=== PATIENT | male | born 1930 | race Caucasian/White ===

== ENCOUNTER 2017-02-26 06:31 | Observation (INO) | payer MEDICARE, OTHER ==
[2017-02-25 13:31] LABS: BASOPHILS % 0.3 % (0.0-1.0); EOSINOPHILS # (AUTO) 0.1 (0.0-0.4); EOSINOPHILS % 1.7 % (0.0-6.0); HEMATOCRIT 35.1 % (38.2-49.6); HEMOGLOBIN 11.4 g/dL (14.0-18.0); LYMPHOCYTES # (AUTO) 1.7 (1.0-3.2); LYMPHOCYTES % 22.3 % (18.0-39.1); MEAN CORPUSCULAR HEMOGLOBIN 30.2 pg (28-32); MEAN CORPUSCULAR HGB CONC 32.5 g/dL (31-35); MEAN CORPUSCULAR VOLUME 93.1 fL (81-99); MONOCYTES # (AUTO) 0.4 (0.2-0.8); MONOCYTES % 5.8 % (4.4-11.3); NEUTROPHILS # (AUTO) 5.3 (2.1-6.9); NEUTROPHILS % 69.8 % (38.7-80.0); PLATELET COUNT 143 x10e3/uL (140-360); RED BLOOD COUNT 3.77 x10e6/uL (4.3-5.7); RED CELL DISTRIBUTION WIDTH 14.3 % (11.7-14.4)
[2017-02-25 13:55] LABS: INR 1.06; PARTIAL THROMBOPLASTIN TIME 33.2 seconds (23.8-35.5); PROTHROMBIN TIME 14.3 seconds (11.9-14.5)
--- NOTE | 2017-02-25 13:55 | Diagnostic Imaging Report ---
PROCEDURE: Frontal and lateral views of the chest. COMPARISON: Portable chest 11/12/2015. INDICATIONS: PRE OPERATIVE CHEST X-RAY FOR BACK SURGERY FINDINGS: Lines/tubes: None. Lungs: The lungs are well inflated and clear. There is no evidence of pneumonia or pulmonary edema. Pleura: There is no pleural effusion or pneumothorax. Heart and mediastinum: The heart and the mediastinum are normal. Atherosclerotic calcifications. Bones: No acute bony abnormality. Degenerative changes of the thoracic spine. IMPRESSION: No acute radiographic abnormality. Dictated by: Benoit Barillas M.D. on 02/25/2017 at 14:02 Electronically approved by: Benoit Barillas M.D. on 02/25/2017 at 14:02
[2017-02-25 14:03] LABS: ANION GAP 12.1 mmol/L (8-16); BLOOD UREA NITROGEN 26 mg/dL (7-26); BUN/CREATININE RATIO 24 (6-25); CALCIUM 9.6 mg/dL (8.4-10.2); CARBON DIOXIDE 24 mmol/L (22-29); CHLORIDE 108 mmol/L (98-107); CREATININE, SERUM 1.07 mg/dL (0.72-1.25); EST GLOMERULAR FILTRATION RATE > 60 ML/MIN (60-); GLUCOSE 93 mg/dL (74-118); POTASSIUM 4.1 mmol/L (3.5-5.1); SODIUM 140 mmol/L (136-145)
[~2017-02-26] VITALS: Ht 180.3 cm; Wt 89.8 kg
[2017-02-26] VITALS (7 sets, daily range): BP systolic 124–165; BP diastolic 63–85
[~2017-02-26 06:31] MED LIST: ALEVE220 M1 PO; ALLOPURINOL300 MG PO; AMLODIPINE BESYL5 MG PO; AVODART0.5 MG PO; ELIQUIS; ELIQUIS PO; OCUVITE LUTEIN1 EACH PO; OMEPRAZOLE40 MG PO; PREDNISONE10 MG PO; VASOTEC10 M1 PO
[2017-02-26] MEDS ORDERED: GELATIN SPONGE SZ 100 ONE (06:50)
[2017-02-26] MEDS ORDERED: THROMBIN FOR SOLN 5,000 UNIT VIAL ONE (06:50)
[2017-02-26] MEDS ORDERED: BUPIVACAINE 0.5%/EPI 30 ML SDV INJ ONE (06:50)
[2017-02-26] MEDS ORDERED: BACITRACIN 50,000 UNIT VIAL ONE (06:50)
[2017-02-26] MEDS ORDERED: CEFAZOLIN SOD 1 GM/NS 50ML 50 ML IV ONE (07:03)
[2017-02-26] MEDS ORDERED: ACETAMINOPHEN 1000 MG/100 ML 100 ML IV ONE (07:20)
[2017-02-26] MEDS ORDERED: LIDOCAINE HCL (LTA) 4 ML SOLN ONE (07:21)
[2017-02-26] MEDS ORDERED: PROMETHAZINE HCL (IM) 25 MG/ML VIAL IM PRN (10:00)
[2017-02-26] MEDS ORDERED: MAGNESIUM/ALUMINUM/SIMETHICONE 30 ML UDC PO PRN (10:00)
[2017-02-26] MEDS ORDERED: ONDANSETRON HCL INJ 2 MG/ML VIAL IV PRN (10:00)
[2017-02-26] MEDS ORDERED: MORPHINE SULFATE 5 MG/ML VIAL IM PRN (10:00)
[2017-02-26] MEDS ORDERED: HYDROMORPHONE 2MG/ML INJ IV PRN (10:00)
[2017-02-26] MEDS ORDERED: CARISOPRODOL 350 MG TAB PO PRN (10:00)
[2017-02-26] MEDS: ENALAPRIL MALEATE 10 MG TAB PO SCH (10:50)
[2017-02-26] MEDS: AMLODIPINE BESYLATE 5 MG TAB PO SCH (10:50)
[2017-02-26] MEDS: LACTATED RINGER'S 1,000 ML IV SCH ×2 (10:50→18:10)
[2017-02-26] MEDS: OXYCODONE/ACETAMINOPHEN 5-325 1 EACH TABLET PO PRN (12:40)
[2017-02-26] MEDS: CEFAZOLIN SOD 1 GM VIAL IV SCH ×2 (13:20→22:05)
[2017-02-26] MEDS ORDERED: CEFAZOLIN SOD 1 GM/NS 50ML 50 ML IV SCH (14:00)
--- NOTE | 2017-02-26 15:43 | Operative Report ---
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 PROCEDURES: 1. Left L3-4 laminotomy, medial facetectomy, and microsurgical lateral recess decompression, 72886. 2. Left L4-5 laminotomy, medial facetectomy, and microsurgical lateral recess decompression, 31867. ANESTHESIA: General. INDICATIONS: Patient is an elderly man who presents with radicular pain in the left leg and is found to have lateral recess stenosis at L3-4 and L4-5 and spinal stenosis with unilateral neurogenic claudication. The patient was taken to the operating room for a left L3-4 and L4-5 lateral recess decompression. PROCEDURE: After the induction of general anesthesia, the patient was placed on the operating table in prone position over a Omar frame. The lumbar region was prepped and draped in sterile fashion. A preoperative x-ray was obtained. A midline incision was created. The lumbar fascia was opened to the left of midline, and a subperiosteal dissection was carried out to expose the left side of the L3, L4 and L5 laminae. The medial aspects of the facet joints were exposed. The facets were markedly hypertrophic. A 2nd x-ray confirmed correct localization just below the L4 pedicle. The operating microscope was brought in. A high-speed drill equipped with a wild bur was used to drill the inferior aspect of the lamina of L3, the medial aspect of the L3-4 hypertrophic facet joint, all of the teto-lamina of L4 and the superior aspect of the lamina of L5, and the medial aspect of the L4-5 hypertrophic facet joint. The ligamentum flavum was resected, and the dural sac and the L3, L4 and the L5 nerve roots were fully decompressed. Meticulous hemostasis was secured. The retractor was removed. The lumbar fascia was closed with 0 Vicryl sutures. Subcutaneous layer was closed with 2-0 Vicryl sutures. The skin was closed with 3-0 Monocryl sutures and josé miguel. A dressing was applied. The patient was awakened, extubated and taken to the postanesthesia care unit in stable condition. No intraoperative complications were encountered. Estimated blood loss was 30 mL. Job#: [id number] EV
[2017-02-26] MEDS ORDERED: EPHEDRINE SULFATE INJ 50 MG/10 ML SYR ONE (18:10)
[2017-02-26] MEDS ORDERED: LIDOCAINE HCL 2% LOCAL INJ 5 ML SDV VIAL INJ ONE (18:10)
[2017-02-26] MEDS ORDERED: DESFLURANE 240 ML BTL INH ONE (18:10)
[2017-02-26] MEDS ORDERED: PROPOFOL IV EMULSION 10 MG/ML 20 ML VIAL ONE (18:10)
[2017-02-26] MEDS ORDERED: GLYCOPYRROLATE INJ 1MG/ 5 ML SYR ONE (18:10)
[2017-02-26] MEDS ORDERED: ROCURONIUM BROMIDE 10 MG/ML 5ML VIAL ONE (18:10)
[2017-02-26] MEDS ORDERED: NEOSTIGMINE 5 MG/5ML SYR ONE (18:10)
[2017-02-26] MEDS ORDERED: DEXAMETHASONE SOD PHOS INJ 4 MG/ML VIAL ONE (18:10)
[2017-02-26] MEDS ORDERED: ONDANSETRON HCL INJ 2 MG/ML VIAL ONE (18:10)
[2017-02-26] MEDS ORDERED: LIDOCAINE HCL 2% JELLY 5 ML TUBE ONE (18:10)
[2017-02-26] MEDS ORDERED: FENTANYL CITRATE/PF 100MCG/2 ML INJ ONE (18:50)
[2017-02-26] MEDS ORDERED: ZOLPIDEM TARTRATE 5 MG TAB PO PRN (21:00)
[2017-02-27] MEDS: OXYCODONE/ACETAMINOPHEN 5-325 1 EACH TABLET PO PRN ×2 (00:55→19:53)
[2017-02-27] MEDS: LACTATED RINGER'S 1,000 ML IV SCH ×2 (02:30→10:33)
[2017-02-27 08:30] VITALS: BP 155/70
[2017-02-27] MEDS: AMLODIPINE BESYLATE 5 MG TAB PO SCH (08:52)
[2017-02-27] MEDS: ENALAPRIL MALEATE 10 MG TAB PO SCH (08:53)
[2017-02-27] MEDS ORDERED: NAPROXEN SODIUM 220 MG PO SCH (09:00)
[2017-02-27] MEDS ORDERED: ALLOPURINOL 300 MG TAB PO SCH (09:00)
[2017-02-27] MEDS ORDERED: PANTOPRAZOLE SOD 40 MG TABEC PO SCH (09:00)
[2017-02-27] MEDS ORDERED: DUTASTERIDE 0.5 MG CAP PO SCH (09:00)
[2017-02-27] MEDS ORDERED: OCUVITE PRESERVISION TABLET PO SCH (09:00)
[2017-02-27] MEDS ORDERED: NORCO 7.5-3251 EACH PO (10:54)
[2017-02-27] MEDS: ACETAMINOPHEN 325 MG TAB PO PRN ×2 (11:37→17:35)
[2017-02-27 17:40] LABS: ALANINE AMINOTRANSFERASE 7 IU/L (0-55); ALBUMIN 3.9 g/dL (3.5-5.0); ALBUMIN/GLOBULIN RATIO 1.1 (0.8-2.0); ALKALINE PHOSPHATASE 84 IU/L (40-150); ANION GAP 14.2 mmol/L (8-16); BLOOD UREA NITROGEN 23 mg/dL (7-26); BUN/CREATININE RATIO 24 (6-25); CALCIUM 9.3 mg/dL (8.4-10.2); CARBON DIOXIDE 24 mmol/L (22-29); CHLORIDE 96 mmol/L (98-107); CREATININE, SERUM 0.97 mg/dL (0.72-1.25); EST GLOMERULAR FILTRATION RATE > 60 ML/MIN (60-); GLUCOSE 116 mg/dL (74-118); POTASSIUM 4.2 mmol/L (3.5-5.1); SODIUM 130 mmol/L (136-145)
[2017-02-27 18:05] VITALS: BP 158/88
[2017-02-27 20:00] VITALS: BP 136/73
[2017-02-27] MEDS ORDERED: TAMSULOSIN HCL 0.4 MG CAP PO SCH (21:00)
[2017-02-27] MEDS ORDERED: DOCUSATE SODIUM 100 MG CAP PO PRN (21:30)
[2017-02-28] MEDS ORDERED: DIPHENHYDRAMINE HCL INJ 50 MG/ML VIAL IV ONE (00:45)
[2017-02-28] MEDS ORDERED: HALOPERIDOL LACTATE 5 MG/ML VIAL IV ONE (00:45)
--- NOTE | 2017-02-28 10:53 | Consultation ---
DATE OF CONSULTATION: February 27, 2017 REASON FOR CONSULTATION: Urinary retention. HISTORY: An 86-year-old male who comes to the hospital for neurosurgical surgery, which has been done successfully, but he has developed urinary retention. By history, the patient states that he has been taking Avodart for a number of years and that he has no problems urinating. He denies nocturia more than once. Denies hematuria, frequency, urgency, urge incontinence, dribbling or feeling of incomplete voiding. The patient states that urinating has not been a problem and that he never had any surgery in his urinary tract. SOCIAL HISTORY: and lives with his . He has 4 children. He is raising a grandchild. The patient has an indwelling Michel catheter. IMPRESSION: Urinary retention post surgery. RECOMMENDATIONS: The patient seems to be slightly confused today. This may be the result of anesthesia and pain medication. He is not taking any medication for mental confusion or for dementia. Therefore, this is probably an intermittent episode probably related to anesthesia or pain medication as stated above. Currently, the patient is taking Avodart. I will add Flomax. We will give him a leg bag. I will be checking his renal function and a complete metabolic panel as well as his potassium tomorrow. If these are normal, then he will go home with a leg bag and I will see him next Thursday for a volume trial in the office. I gave the patient and his son-in-law my address and a card with telephone number. Job#: [id number]
== END 2017-02-28 06:26 | disposition home or self-care (01) ==
LOC: OR 06:31 → MED/SURG 10:11
PROVIDERS: ADMIT Neurological Surgery; ATTEND Neurological Surgery
DX: M48.062 Spinal stenosis, lumbar region with neurogenic claudication (principal); M21.372 Foot drop, left foot; R33.9 Retention of urine, unspecified; R41.0 Disorientation, unspecified
CPT/HCPCS: 36415 ×2; 63047; 63048; 71020; 72020; 80048; 80053; 85025; 85610; 85730; 86850; 86900; 88304; 88311; 93005; G0378 ×3; J0690 ×2; J1100; J1170; J1200; J1630; J2001 ×2; J2405; J7120

== ENCOUNTER 2017-04-21 09:00 | Outpatient (RCR) | payer MEDICARE, OTHER ==
[~2017-04-21 09:00] MED LIST changes: +NORCO 7.5-3251 EACH PO
== END 2017-04-22 ==
LOC: PT 09:00
PROVIDERS: ATTEND Neurological Surgery
DX: M48.062 Spinal stenosis, lumbar region with neurogenic claudication (principal)
CPT/HCPCS: 97110 ×5; 97162; G8978; G8979

== ENCOUNTER 2017-05-07 08:57 | Outpatient (RCR) | payer MEDICARE | END 2017-05-20 | LOC: PT 08:57 | PROVIDERS: ATTEND Neurological Surgery | DX: M48.062 Spinal stenosis, lumbar region with neurogenic claudication (principal) | CPT/HCPCS: 97110 ×5; 97139; G8978; G8979 ==